=== PATIENT | female | born 1985 | race Caucasian/White ===

== ENCOUNTER 2017-09-20 16:39 | Emergency (ER) | payer SELFPAY ==
[2017-09-20 16:49] VITALS: BP 151/107; BMI 37.3
[2017-09-20] MEDS ORDERED: TORADOL 60 MG VIAL IM ONE (17:21)
--- NOTE | 2017-09-20 17:23 | DR.GENAD ---
HPI - PCP Primary Care Physician: NFD - Complaint/Symptoms Chief Complaint Doctors Comments: Patient admits to low back pain s/p falling down stairs four days ago. The pain is constant Chief Complaint:: Pt fell down flight of stairs on Sunday. Since then pt has had pain in left lower back radiating into left flank area and lower left abdomen. Pain is described as constant and dull achy pain currently rated 5/ 10. Pain is worse when walking and better with a hot bath. - Source History Provided: Patient - Mode of Arrival Mode of Arrival: Ambulatory - Timing Onset of Chief Complaint: 09/17/17 PMH - PMH Past Medical History: Yes Past Medical History: Kidney Stones Past Surgical History: Yes Surgical History: , Tonsillectomy Past Surgical History Comment: x3. right nephrectomy - Family History History of Family Medical Conditions: Yes Family Medical History: Diabetes Mellitus, Cancer, Heart Failure, Hypertension Family Medical History Comment: kidney disease - Social History Does patient currently use any type of tobacco product: Yes Have you used tobacco products in the last 12 months: Yes Type of Tobacco Use: Cigarettes Does any household member use tobacco: Yes Alcohol Use: Rarely Do you use any recreational Drugs:: Yes (marijuana) Lives With: Family Lives Where: Home - infectious screening In the last 2 months have you had wt loss of >10#?: NO Have you had fever, night sweats or hemotysis?: No Have you traveled outside the country in the last 6 months?: No Isolation: Standard ROS - Review of Systems Eyes: No Symptoms Reported ENTM: No Symptoms Reported Respiratoy: No Symptoms Reported Cardiovascular: No Symptoms Reported Gastrointestinal/Abdominal: No Symptoms Reported Genitourinary: No Symptoms Reported Neurological: No Symptoms Reported Musculoskeletal: Back Pain Integumentary: No Symptoms Reported Hematologic/Lymphatic: No Symptoms Reported Endocrine: No Symptoms Reported Psychiatric: No Symptoms Reported All Other Systems: Reviewed and Negative PE - Vital Signs Vitals: Temperature 97.5 F Pulse Rate 80 Respiratory Rate 20 Blood Pressure [Left Arm] 130/86 Blood Pressure 151/107 O2 Sat by Pulse Oximetry 100 - General Limitations: Language Barrier General Appearance: Alert, In No Apparent Distress - Head Head Exam: Normal Inspection, Atraumatic - Eyes Eye exam: Normal Appearance, PERRL, EOMI - ENT ENT Exam: Normal Exam External Ear Exam: Normal External Inspection TM/Canal Exam: Bilateral Normal Nose Exam: Normal Nose Exam Mouth Exam: Normal Inspection Throat Exam: Normal Inspection - Neck Neck Exam: Normal Inspection - Chest Chest Inspection: Normal Inspection - Respiratory Respiratory Exam: Normal Lung Sounds Bilat Respiratory Exam: Bilateral Clear to Auscultation - Cardiovascular Cardiovascular Exam: Normal Rhythm - Abdominal Exam Abdominal Exam: Normal Inspection, Normal Bowel Sounds Abdominal Tenderness: negative: RUQ, RLQ, LUQ, LLQ, Epigastrium, Suprapubic, Diffuse, Mild, Moderate, Severe, Other - Extremities Extremities Exam: Normal Inspection, Full ROM - Back Back Exam: Normal Inspection, Muscle Spasm - Neurologic Neurological Exam: Alert, Oriented X3, CN II-XII Intact - Psychiatric Psychiatric Exam: Normal Affect - Skin Skin Exam: Warm, Dry, Intact ROR - Labs Reviewed Laboratory: Specimen Type Clean catch urine 09/20/17 18:17 Urine Color Yellow (YELLOW) 09/20/17 18:17 Urine Appearance Clear (CLEAR) 09/20/17 18:17 Urine pH 6.0 (5.0 - 8.0) 09/20/17 18:17 Ur Specific [place] 1.010 (1.000-1.030) 09/20/17 18:17 Urine Protein Negative (NEGATIVE) 09/20/17 18:17 Urine Glucose (UA) Negative (NEGATIVE) 09/20/17 18:17 Urine Ketones Negative (NEGATIVE) 09/20/17 18:17 Urine Occult Blood Negative (NEGATIVE) 09/20/17 18:17 Urine Nitrite Negative (NEGATIVE) 09/20/17 18:17 Urine Bilirubin Negative (NEGATIVE) 09/20/17 18:17 Urine Urobilinogen Normal (NORMAL) 09/20/17 18:17 Ur Leukocyte Esterase Negative (NEGATIVE) 09/20/17 18:17 - Discharge Plan Condition: Stable - Follow ups/Referrals Follow ups/Referrals: NFD,None [Primary Care Provider] - 3 days - Instructions
[2017-09-20] MEDS ORDERED: TORADOL 60 MG VIAL ONE (18:13)
[2017-09-20 18:29] LABS: BILIRUBIN,URINE NEGATIVE (NEGATIVE); BLOOD/HEMOGLOBIN,URINE NEGATIVE (NEGATIVE); GLUCOSE, URINE NEGATIVE (NEGATIVE); KETONES,URINE NEGATIVE (NEGATIVE); LEUKOCYTE ESTERASE ,URINE NEGATIVE (NEGATIVE); NITRITES,URINE NEGATIVE (NEGATIVE); PROTEIN,URINE NEGATIVE (NEGATIVE); UROBILINOGEN,URINE NORMAL (NORMAL)
[2017-09-20 18:31] LABS: APPEARANCE,URINE CLEAR (CLEAR); COLOR,URINE YELLOW (YELLOW)
--- NOTE | 2017-09-20 18:59 | RAD ---
Three views of the lumbar spine Indication: Lower back pain Findings: No acute fracture or dislocation within the lumbar spine. There is mild spondylosis at L3-4 . There is also mild facet arthropathy at L4-5 and L5-S1. SI joints are intact. Impression: 1.No acute fracture or spondylolisthesis within the lumbar spine. 2. Mild spondylosis and facet arthropathy in the lumbar spine. Reported By:
== END 2017-09-20 19:34 | disposition home or self-care (01) ==
LOC: ER 16:55
DX: M47.26 Other spondylosis with radiculopathy, lumbar region (principal); M43.06 Spondylolysis, lumbar region; M12.9 Arthropathy, unspecified
CPT/HCPCS: 72100; 81003; 96372; 99282; J1885